=== PATIENT | male | born 1975 | race Caucasian/White ===

== ENCOUNTER 2021-03-28 13:13 | Emergency (ER) | payer BC ==
[2021-03-28 13:16] VITALS: PULSE 88
[2021-03-28] MEDS ORDERED: Take Home: Azithromycin 250 MG, 2 Tab Pack PO ONE (13:29)
--- NOTE | 2021-03-28 13:48 | EDM.PDOC ---
ED HPI GENERAL MEDICAL PROBLEM - General Chief Complaint: General Stated Complaint: sore throat [id number] Time Seen by Provider: 03/28/21 13:18 Source of Information: Reports: Patient History Limitations: Reports: No Limitations - History of Present Illness INITIAL COMMENTS - FREE TEXT/NARRATIVE: Oscar is a 45 year old male who presents to ER with a 3 week history of sinus pressure and a significant sore throat. No fevers. Denies cough. No shortness of breath. No nausea/vomiting or abdominal discomfort. No diarrhea. No loss of taste or smell. Onset: Gradual Duration: Week(s): Location: Reports: Head Quality: Reports: Ache Severity: Mild Improves with: Reports: None Associated Symptoms: Denies: Confusion, Chest Pain, Cough, Fever/Chills, Loss of Appetite, Shortness of Breath - Related Data Allergies Allergy/AdvReac Type Severity Reaction Status Date / Time Penicillins Allergy Other Verified 09/27/16 11:54 Home Meds: Home Meds Pantoprazole Sodium 40 mg PO DAILY 06/13/14 [History] Rosuvastatin [Crestor] 5 mg PO DAILY 03/28/21 [History] Past Medical History - Past Health History Medical/Surgical History: Denies Medical/Surgical History Cardiovascular History: Reports: High Cholesterol Social & Family History - Tobacco Use Tobacco Use Status *Q: Never Tobacco User - Caffeine Use Caffeine Use: Reports: None - Recreational Drug Use Recreational Drug Use: No ED ROS GENERAL - Review of Systems Review Of Systems: See Below Constitutional: Reports: Malaise. Denies: Fever, Chills, Weakness, Fatigue HEENT: Reports: Rhinitis, Sinus Problem, Throat Pain. Denies: Ear Pain, Throat Swelling Respiratory: Denies: Shortness of Breath, Cough Cardiovascular: Denies: Chest Pain, Lightheadedness Endocrine: Reports: Fatigue GI/Abdominal: Denies: Abdominal Pain, Constipation, Diarrhea, Nausea, Vomiting : Reports: No Symptoms Musculoskeletal: Reports: No Symptoms Skin: Reports: No Symptoms Neurological: Reports: No Symptoms Psychiatric: Reports: No Symptoms ED EXAM, GENERAL - Physical Exam Exam: See Below Exam Limited By: No Limitations General Appearance: Alert, WD/WN, No Apparent Distress Ears: Normal External Exam, Normal TMs Nose: Normal Inspection, Normal Mucosa, Nasal Drainage, Other (maxillary sinus tenderness with palpation) Throat/Mouth: Normal Inspection, Normal Oropharynx Head: Normocephalic Neck: Normal Inspection, Supple, Non-Tender Respiratory/Chest: No Respiratory Distress, Lungs Clear, Normal Breath Sounds Cardiovascular: Regular Rate, Rhythm GI/Abdominal: Normal Bowel Sounds, Soft, Non-Tender Extremities: Normal Inspection, No Pedal Edema Neurological: Alert, Oriented Skin Exam: Warm, Dry Course - Vital Signs Last Recorded V/S: Last Vital Signs Temp 98.1 F 03/28/21 13:13 Pulse 88 03/28/21 13:13 Resp 16 03/28/21 13:13 BP Pulse Ox 98 03/28/21 13:13 - Orders/Labs/Meds Meds: Medications Discontinued Medications Generic Name Dose Route Start Last Admin Trade Name Gab PRN Reason Stop Dose Admin Azithromycin 2 packet 03/28/21 13:29 03/28/21 13:32 Take Home: Azithromycin 250 Mg, 2 Tab Pack PO 03/28/21 13:30 2 packet ONETIME ONE Administration Departure - Departure Time of Disposition: 13:47 Disposition: Home, Self-Care 01 Condition: Good Clinical Impression: Sinusitis - Discharge Information *PRESCRIPTION DRUG MONITORING PROGRAM REVIEWED*: No *COPY OF PRESCRIPTION DRUG MONITORING REPORT IN PATIENT ZEFERINO: No Instructions: Sinusitis, Adult, [id number] Referrals: Rojelio Rhodes MD [Primary Care Provider] - Forms: ED Department Discharge Additional Instructions: 1. Push fluids 2. Tylenol or ibuprofen for fever or discomfort 3. Zithromax 250 mg~ 2 tabs today, 1 tab days 2-5 4. Follow up if any persisting concerns. Sepsis Event Note (ED) - Evaluation Sepsis Screening Result: No Definite Risk - Focused Exam Vital Signs: Vital Signs Temp Pulse Resp Pulse Ox 03/28/21 13:13 98.1 F 88 16 98
== END 2021-03-28 14:00 | disposition home or self-care (01) ==
LOC: CC.ED 13:13
DX: J32.9 Chronic sinusitis, unspecified (principal); E78.00 Pure hypercholesterolemia, unspecified; Z88.0 Allergy status to penicillin; Z79.899 Other long term (current) drug therapy
CPT/HCPCS: 99283; A9270-GY

== ENCOUNTER 2022-01-20 11:47 | Observation (INO) | payer BC ==
[2022-01-20] MEDS ORDERED: Metoprolol Tartrate 5 MG/5 ML SDV IVPUSH ONE (12:31)
[2022-01-20 12:39] LABS: CHLORIDE,CL 104 mEq/L (98-106); SODIUM,NA 140 mEq/L (136-145)
[2022-01-20 12:41] LABS: ESTIMATED GFR 75 mL/min (>=60)
[2022-01-20] MEDS ORDERED: Iopamidol 755 Mg/ML 100 ML Bottle IVPUSH ONE (13:00)
[2022-01-20] MEDS ORDERED: Ketorolac 30 MG/ML SDV IVPUSH ONE (14:39)
[2022-01-20] MEDS ORDERED: Ondansetron 4 MG/2 ML SDV IV PRN (15:33)
[2022-01-20] MEDS ORDERED: Acetaminophen 325 MG Tab PO PRN (15:33)
[2022-01-20] MEDS ORDERED: Ondansetron 4 MG Tab.DIS PO PRN (15:33)
[2022-01-20] MEDS ORDERED: Ketorolac 30 MG/ML SDV IVPUSH PRN (15:33)
[2022-01-20] MEDS ORDERED: diphenhydrAMINE 25 MG Cap PO ONE (20:50)
[2022-01-21 07:29] LABS: CHLORIDE,CL 105 mEq/L (98-106); SODIUM,NA 141 mEq/L (136-145)
[2022-01-21 07:33] LABS: ESTIMATED GFR 83 mL/min (>=60)
[2022-01-21] MEDS ORDERED: Non-Formulary Medication 1 Each (Rosuvastatin [Crestor] 5 MG Tablet) PO SCH (08:00)
[2022-01-21] MEDS ORDERED: Take Home: Pantoprazole 40 MG Tab.CR, 1 Tab Pack PO SCH (08:00)
[2022-01-21 08:28] VITALS: BP 143/97; PULSE 47
== END 2022-01-21 08:58 | disposition home or self-care (01) ==
LOC: CC.ED 11:47 → CC.MS 14:45 → UNDOADMOB 14:45 → CC.MS 14:46
PROVIDERS: ADMIT Nurse Practitioner Family; ATTEND Nurse Practitioner Family
DX: R53.1 Weakness (principal); E78.00 Pure hypercholesterolemia, unspecified; I10 Essential (primary) hypertension; Z88.0 Allergy status to penicillin; Z79.899 Other long term (current) drug therapy
CPT/HCPCS: 36415; 70450; 70496; 80053; 84484; 85025; 85730; 86140; 93005; 96374; 96375; 99217; 99220; 99285-25; A9270-GY; G0378; J1885; J3490; Q9967

== ENCOUNTER → 2023-05-13 | Day surgery (SDC) | payer BC ==
[~2023-05-13] MED LIST: Ketamine 200 MG/20 ML MDV ONE; Lactated Ringers 1,000 ML IV SCH; Lidocaine 1% 30 ML SDV ONE; Propofol 200 MG/20 ML SDV ONE; fentaNYL 50 MCG/ML SDV ONE
[2023-05-13 10:29] VITALS: BP 132/71; PULSE 84
== END ==
LOC: CC.SDS 08:27
PROVIDERS: ATTEND Family Medicine
DX: Z12.11 Encounter for screening for malignant neoplasm of colon (principal); K31.7 Polyp of stomach and duodenum; K21.9 Gastro-esophageal reflux disease without esophagitis; K57.30 Diverticulosis of large intestine without perforation or abscess without bleeding; I10 Essential (primary) hypertension; E78.5 Hyperlipidemia, unspecified; N40.1 Benign prostatic hyperplasia with lower urinary tract symptoms; R35.1 Nocturia; Z79.899 Other long term (current) drug therapy
CPT/HCPCS: 43239; 45378; 87081; J2704; J3010; J7120; 00813; J3490